=== PATIENT | male | born 1955 | race Two or more races ===

== ENCOUNTER 2025-03-10 09:49 | Outpatient (CLI) | payer MEDICARE, BC ==
--- NOTE | 2025-03-10 11:10 | DVH ---
PROCEDURE: Ultrasound-guided paracentesis Procedural Personnel Attending physician(s): Kavon Nassar Fellow physician(s): None Resident physician(s): None Advanced practice provider(s): None Pre-procedure diagnosis: Ascites Post-procedure diagnosis: Same Indication: PARACENTESIS Additional clinical history: None Complications: No immediate complications. IMPRESSION: [place] [address] mL [place] serous fluid. Plan: Resume care by clinical team. PROCEDURE SUMMARY: - Ultrasound-guided paracentesis - Additional procedure(s): None PROCEDURE DETAILS: Pre-procedure Consent: Informed consent for the procedure including risks, benefits and alternatives was obtained a nd time-out was performed prior to the procedure. Preparation: The site was prepared and draped using maximal sterile barrier technique including cutan eous antisepsis. Anesthesia/sedation Level of anesthesia/sedation: No sedation Anesthesia/sedation administered by: Not applicable Total intra-service sedation time (minutes): Not applicable Initial abdominal ultrasound Initial abdominal ultrasound was performed. Findings: Large ascites. Paracentesis Local anesthesia was administered. A safe window for paracentesis was identified with ultrasound. The peritoneal cavity was accessed and fluid return confirmed position. Ascites was drained. The cathete r was removed and a sterile dressing was applied. Catheter size (Fr):5 Fluid appearance: serous Volume drained (mL): 16837 Post-drainage ultrasound: No visible ascites Albumin Administration Grams of albumin given intravenously: None Additional Details Additional description of procedure: None Registry event: V/3/f Device used: None Equipment details: None Specimens removed: Aspirated fluid was not sent for analysis. Estimated blood loss (mL): Less than 10 Standardized report: [id number] Attestation Signer name: Kavon Nassar I attest that I was present for the entire procedure. I reviewed the stored images and agree with the report as written.
[2025-03-11 12:07] LABS: Glucose, Body Fluid 111.0 mg/dL (.); LD, Body Fluid 61.0 IU/L (.)
== END 2025-03-10 17:00 | disposition home or self-care (01) ==
LOC: US 09:49
PROVIDERS: ATTEND Internal Medicine Gastroenterology
DX: R18.8 Other ascites (principal); K74.69 Other cirrhosis of liver; Z79.899 Other long term (current) drug therapy; Z86.19 Personal history of other infectious and parasitic diseases; Z85.09 Personal history of malignant neoplasm of other digestive organs; Z82.49 Family history of ischemic heart disease and other diseases of the circulatory system; Z83.3 Family history of diabetes mellitus
CPT/HCPCS: 49083; 83986; 87205; 89051; C1729; 76705; 76942